=== PATIENT | male | born 1950 | race Two or more races ===

== ENCOUNTER 2016-09-14 13:01 | Day surgery (SDC) | payer OTHER ==
--- NOTE | ~2016-09-14 | EGD ---
EGD REPORT [facility] [address] [place] [address] NAME: SAMUEL BLEVINS : [birth year] STATUS : REG [facility]#: [id number] AGE: 66 ADM/REG DATE : 09/14/16 MR#: [id number] REPORT SERV DATE: 09/14/16 DICTATED BY: SCOTTY TUCKER DATE: 09/14/16 REPORT STATUS : Draft TRANSCRIBED BY: [facility] DATE: 09/14/16 [facility] Center Patient Name: Samuel Blevins Date of : 1950 Attending MD: SCOTTY TUCKER MD Procedure Date No Time: 09/14/2016 Procedure: Upper GI endoscopy Indications: Follow-up of esophageal varices with prior hx of EVL Referring MD: MARCO BOO Medicines: Propofol per Anesthesia Complications: No immediate complications. Procedure: Pre-Anesthesia Assessment: - ASA Grade Assessment: III - A patient with severe systemic disease. After obtaining informed consent, the endoscope was passed under direct vision. Throughout the procedure, the patient's blood pressure, pulse, and oxygen saturations were monitored continuously. The GIF [id number] was introduced through the mouth, and advanced to the second part of duodenum. The upper GI endoscopy was accomplished without difficulty. The patient tolerated the procedure well. Findings: The examined esophagus was normal. There is no endoscopic evidence of varices in the lower third of the esophagus. Mild portal hypertensive gastropathy was found at the gastroesophageal junction, in the cardia and in the gastric fundus. The examined duodenum was normal. Impression: - Normal esophagus. - Portal hypertensive gastropathy. - Normal examined duodenum. Recommendation: - Continue propanolol. - Repeat the upper endoscopy in 3 years for surveillance. Procedure Code(s): --- Professional --- 46378, Esophagogastroduodenoscopy, flexible, transoral; diagnostic, including collection of specimen(s) by brushing or washing, when performed (separate procedure) Diagnosis Code(s): --- Professional --- K76.6, Portal hypertension EGD REPORT [facility] [address] [place], [place] [address]. [address] NAME: SAMUEL BLEVINS : [birth year] STATUS : REG [facility] PAT#: [id number] AGE: 66 ADM/REG DATE : 09/14/16 MR#: [id number] REPORT SERV DATE: 09/14/16 DICTATED BY: SCOTTY TUCKER. DATE: 09/14/16 REPORT STATUS : Draft TRANSCRIBED BY: [employer] DATE: 09/14/16 K31.89, Other diseases of stomach and duodenum I85.00, Esophageal varices without bleeding CPT copyright 2013 [employer]. All rights reserved. The codes documented in this report are preliminary and upon medical record coder review may be revised to meet current compliance requirements. SCOTTY TUCKER MD 09/14/2016 2:22 PM This report has been signed electronically. Number of Addenda: 0 Note Initiated On: 09/14/2016 1:56 PM Scope Withdrawal Time 0 hours 0 minutes [address] [place] [id number]
[~2016-09-14 13:01] MED LIST: ACET500CAP PO; AMILORID5B PO; GENERLAC PO; HARVONI; I20 PO; I40 PO; L40 PO; NEXIUM40 PO; PROTONIX PO; PROVHFA INH; SPIRO50 PO; VENTOLIN HFA INH
== END 2016-09-14 23:59 | disposition home or self-care (01) ==
LOC: DMU 13:01
PROVIDERS: Internal Medicine Gastroenterology
PROC: 0DJ08ZZ Inspection of Upper Intestinal Tract, Via Natural or Artificial Opening Endoscopic (ICD-10-PCS; principal; 2016-09-14 14:30)
DX: I85.00 Esophageal varices without bleeding (principal); K76.6 Portal hypertension; K31.89 Other diseases of stomach and duodenum; I10 Essential (primary) hypertension; N39.0 Urinary tract infection, site not specified; K21.9 Gastro-esophageal reflux disease without esophagitis; K74.60 Unspecified cirrhosis of liver; M19.90 Unspecified osteoarthritis, unspecified site; J45.909 Unspecified asthma, uncomplicated; H26.9 Unspecified cataract; Z98.890 Other specified postprocedural states; Z87.891 Personal history of nicotine dependence; Z88.0 Allergy status to penicillin; Z79.899 Other long term (current) drug therapy